=== PATIENT | male | born 2000 | race African-American/Black ===

== ENCOUNTER 2022-11-01 08:23 | Outpatient (CLI) | payer OTHER ==
--- NOTE | 2022-11-01 08:59 | Sleep Patient Instructions ---
Sleep Center Visit Summary - Patient Visit Information Reason for Visit: INITIAL CONSULTATION - Patient Instructions Instructions Attached: Sleep Study, Sleep Clinic Visit, Sleep Study Home Monitor Additional Instructions: You will be completing a sleep study, either an in-lab polysomnography (PSG) or home sleep study (HST). You will follow-up in the sleep care office after the sleep study is completed to hear the results and talk about therapy, if needed. You will be called by our office staff to schedule this appointment, but you may contact us with any questions. - Clinic Information Contact: [facility] [address] [place] [address] [email or web address] T: [phone]
--- NOTE | 2022-11-01 09:02 | SLEEP CARE CONSULTATION ---
Information from patient questionnaire entered by Kale Vega. I have reviewed and concur with the information entered by Kale Vega. This document represents the service I personally performed and the decisions made by me, Rhianna Stone ARNP. History of Present Illness Service Date and Time: 11/01/2022 0823 Reason for Visit: New patient Chief Complaint: reports: Snoring, Excessive daytime sleepiness, Other (HEADACHES) Date of Onset: 1YR Usual bedtime: 9-10PM Time it takes to fall asleep: 30-60MIN Snores at night: Yes Observed to quit breathing while asleep: No Sleeps alone due to snoring: No Number of times waking at night: 2 Reasons for waking at night: reports: Choking, Snoring, Gasping for air, Bathroom Toss, Turn, or Twitch while sleeping: Yes Recalls having dreams: No Usually gets out of bed at: 630AM; weekends sometimes to 0830 Feels refreshed in the morning: No Morning headache: Yes (every morning; last all day but is not always bad; it is constant thru day) Sleepy or fatigued during the day: Yes (no unintentional naps) Ever fallen asleep while driving: No Takes day naps: No Dreams during day naps: No Prior sleep studies: No Additional HPI information: I had the pleasure of seeing VAISHALI DUBOSE today regarding the possibility of him having a sleep disorder. His current complaints are snoring, excessive daytime sleepiness and headaches. He states he has chronic headaches that can last throughout the day. The headaches interrupt his sleep. It takes 30-60 minutes to fall asleep. He will then wake up because his head hurts or if he is on his back he feels like he is choking. He states he always wakes up feeling groggy and like he did not get a good night's sleep. He wakes up 3-6 times a night and sometimes with a dry throat. - Parasomnia Symptoms Ever been unable to move upon waking from sleep: Yes (2 times a week for past 2 months, usually on back) Walks in sleep: No Talks in sleep: No Ever acted out dreams in sleep: No Ever felt weak in the knees when startled or emotional: No Bothered by creepy, crawly, restless sensations in legs: Yes (mostly every day if sitting down to long; not when laying in bed) Problems with memory or concentration: Yes (both) Subjective Initial [place] Sleepiness Scale score: 17 (10/23/22) Past Medical History Past Medical History: reports: Other (chronic headaches) Social History The patient's occupation is a AM. Patient is Single and lives in . Have you smoked in the past 12 months: No Alcohol use: Yes Alcohol amount and frequency: 1-2 ONCE A MONTH Caffeine use: Yes Caffeine amount and frequency: 1 WEEKLY Family History Family history of sleep disordered breathing: No Allergies and Home Medications Known drug allergies: No Drug allergies reviewed: Yes Home medication list reviewed: Yes (see updated list in EMR) Review of Systems Weight gain over past 5 years: 50 Cardiovascular: denies: high blood pressure Gastrointestinal: denies: heartburn Neurological: reports: headaches Psychiatric: denies: Attention Deficit Hyperactivity, anxiety, depression Ear/Nose/Throat: reports: dry mouth/throat, wisdom teeth removed (has one left). denies: tonsillectomy Endocrine: denies: thyroid disease Immunologic: reports: itching, allergies to food or environment (getting hives, unsure of allergy) Physical Exam Vital signs obtained and entered by: KALE Lares MA Blood Pressure: 108/70 (LEFT ARM) Cuff size: regular Heart Rate: 68 O2 Saturation: 99 Height: 5 ft 11 in Weight: 213 lb 12.8 oz Body Mass Index: 29.8 BMI Classification: Overweight Neck circumference: 16.5 Mouth and throat: narrow oropharynx Soft palate: long Hard palate: normal Uvula: normal Uvula visualization: 25% Mallampati Class III Tongue: enlarged in size with teeth zhou on lateral edges Tonsils: 2+ Neck: normal w/o lymphadenopathy or thyromegaly Heart: regular rate and rhythm Lungs: clear bilaterally Impression and Plan 1. Suspected Obstructive Sleep Apnea-Hypopnea Syndrome, as suggested by a history of loud and irregular snoring, gasping or choking in sleep, morning headache, unrefreshed sleep, cognitive impairment, and excessive daytime sleepiness. Narrow oropharynx and obesity are common predisposing factors for obstructive sleep apnea-hypopnea syndrome. I recommend proceeding to polysomnography to confirm the diagnosis and to assess severity. If the patient has significant sleep disordered breathing, a manual CPAP titration study will also be performed to find the optimal treatment pressure. I informed the patient of what the sleep studies involve and after some discussion, obtained agreement to proceed. The pathophysiology of obstructive sleep apnea-hypopnea syndrome was discussed with the patient and health risks of cardiovascular and cerebrovascular disease if not treated. Risks of drowsy driving discussed in detail and patient advised to avoid long distance driving and to pullman car repairer at the first sign of drowsiness. Patient agreed to plan. * Schedule polysomnography. * Avoid long distance driving or driving when feeling sleepy. * Avoid alcohol, sedative and muscle relaxant around bedtime. * Attempt to lose weight. * Review instructions provided by trained office staff on how to prepare for the sleep study. * Return for follow-up after sleep study completed. Counseling Topics: Weight loss health impact Visit Type: In Office Time Spent with Patient (minutes): 30 Provider Statement: I spent 100% of the Face to Face Visit with the patient with greater than 50% spent counseling the patient and coordination of care.
[2022-11-01 09:10] VITALS: BP 108/70; O2SAT 99
== END 2022-11-01 08:24 | disposition home or self-care (01) ==
LOC: SC 08:23
PROVIDERS: ATTEND Nurse Practitioner Family
DX: R06.83 Snoring (principal); R51.9 Headache, unspecified; G47.10 Hypersomnia, unspecified; G47.8 Other sleep disorders; R41.89 Other symptoms and signs involving cognitive functions and awareness
CPT/HCPCS: 99203; 99212

== ENCOUNTER 2023-07-01 07:51 | Outpatient (CLI) | payer OTHER ==
--- NOTE | 2023-07-01 12:27 | Ultrasound Report ---
PROCEDURE: Soft Tissue Head or Neck INDICATIONS: NECK MASS TECHNIQUE: Real-time scanning was performed of the thyroid gland, with image documentation. COMPARISON: None Findings and impression: At the area of clinical concern, there is an hypoechoic structure that that may represent an enlarged lymph node measuring 3.6 x 1.3 x 2.1 cm. Other borderline enlarged lymph nodes are also seen bilater ally. The largest left lymph node measures 4.2 x 1.1 x 2.1 cm. These lymph nodes are mildly enlarged by size criteria. These may be reactive or represent malignant lymphadenopathy. Clinical follow-up is recommended and if there is sufficient concern, consider sampl ing. Reviewed by: Jonnie Ross MD on 07/01/2023 12:26 PM PDT Approved by: Jonnie Ross MD on 07/01/2023 12:26 PM PDT Station ID: [id number]
== END 2023-07-01 07:52 | disposition home or self-care (01) ==
LOC: DI 07:51
PROVIDERS: ATTEND Preventive Medicine Aerospace Medicine
DX: R59.0 Localized enlarged lymph nodes (principal); M54.2 Cervicalgia